=== PATIENT | male | born 1995 ===

== ENCOUNTER 2017-06-22 16:48 | Emergency (ER) | payer OTHER ==
[~2017-06-22] VITALS: Ht 170.2 cm; Wt 73.4 kg
[2017-06-22 16:51] VITALS: TEMP 36.6; Ht 170.2 cm; Wt 73.4 kg
[2017-06-22 17:56] LABS: BASO % 0.4 %; BASO ABS # 0.03 K/uL (0-0.2); EOS % 3.3 %; EOS ABS # 0.25 K/uL (0-0.5); HEMATOCRIT 49.7 % (42-52); HEMOGLOBIN 17.5 g/dL (14.0-18.0); IG# 0.02 K/uL (0.00-0.02); LYMPH % 30.3 %; LYMPH ABS # 2.26 K/uL (1.2-3.4); MEAN CORPUSCULAR HEMOGLOBIN 32.1 pg (25-34); MEAN CORPUSCULAR HGB CONC 35.2 g/dl (32-36); MEAN PLATELET VOLUME 10.3 fL (7.4-10.4); MONO % 9.1 %; MONO ABS # 0.68 K/uL (0.11-0.59); NEUT % 56.6 %; NEUT ABS # 4.23 K/uL (1.4-6.5); PLATELET COUNT 178 K/uL (130-400); RED CELL DISTRIBUTION WIDTH CV 12.8 % (11.5-14.5); RED CELL DISTRIBUTION WIDTH SD 42.4 fL (36.4-46.3); WHITE BLOOD COUNT 7.47 K/uL (4.8-10.8)
[2017-06-22 18:15] LABS: ALBUMIN 3.9 gm/dl (3.4-5.0); ALT/SGPT 38 U/L (12-78); AST/SGOT 30 U/L (15-37); BLOOD UREA NITROGEN 18 mg/dl (7-18); CALCIUM 8.7 mg/dl (8.5-10.1); CARBON DIOXIDE 29 mmol/L (21-32); CREATININE 1.15 mg/dl (0.60-1.40); GLUCOSE 80 mg/dl (70-99); POTASSIUM 4.6 mmol/L (3.5-5.1); SODIUM 138 mmol/L (136-145)
[2017-06-22 18:24] LABS: ALKALINE PHOSPHATASE 79 U/L (45-117); TOTAL PROTEIN 7.7 gm/dl (6.4-8.2)
--- NOTE | 2017-06-22 19:01 | EMERGENCY ROOM VISIT NOTE ---
History Report prepared by [facility]: Pippa Wisdom Under the Supervision of: Dr. Charmaine Liang D.O. First contact with patient: 17:18 Chief Complaint: MENTAL HEALTH EVALUATION Stated Complaint: MENTAL HEALTH EVAL History of Present Illness The patient is a 21 year old male who presents to the Emergency Room for a mental health evaluation. The patient was brought in by the [place] Police. The patient reports he talked to a counselor at [facility] [employer] through student affairs today. He states "I think my tone was off". He reports his counselor called the police to take him to the ED because she was "concerned" for him. The patient states he willingly came to the ED with police. The patient states he has told his counselor at [facility] about his thoughts of wanting to hurt himself. He notes intermittent thoughts of wanting to hurt himself. He reports these thoughts have become more frequent. He denies any suicidal attempts. He also notes "mood swings" of anger and sadness. The patient reports he has more recently had racing thoughts, been unable to slow his mind down, and difficulty falling asleep at night. The patient reports feeling anxious about a lot of things. He notes having surgery on left ankle a year ago. He reports he still has a lot of pain in his ankle. The patient was on oxycodone and Percocet after his surgery. He denies any more recent use of pain medication. The patient states his thoughts of wanting to hurt himself initially started after he had to be sedentary from his surgery a year ago. 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 Pt denies headache, change in vision, fevers, chest pain, shortness of breath, nausea, vomiting, diarrhea, pain with urination , and melena. Source of History: patient Position: other (generalized) Quality: other (mental health evaluation) Modifying Factors (Relieving): other (none) Associated Symptoms: No fevers, No headache, No chest pain, No SOB, No nausea, No vomiting, No urinary symptoms Review of Systems See HPI for pertinent positives & negatives. A total of 10 systems reviewed and were otherwise negative. Past Medical & Surgical Medical Problems: (1) left ankle surgery Family History Patient reports no known family medical history. Social History Smoking Status: Current Every Day Smoker Marital Status: single Housing Status: lives with roommate Occupation Status: [employer] student Current/Historical Medications No Active Prescriptions or Reported Meds Allergies Coded Allergies: No Known Allergies (Unverified , 12/13/15) Physical Exam Vital Signs Date Time Temp Pulse Resp B/P (MAP) Pulse Ox O2 Delivery O2 Flow Rate FiO2 06/22/17 19:15 64 16 122/69 98 06/22/17 16:51 36.6 78 16 130/76 98 Room Air Physical Exam GENERAL: alert, well appearing, well nourished, no distress, non-toxic EYE EXAM: normal conjunctiva, PERRL and EOM's grossly intact OROPHARYNX: no exudate, no erythema, lips, buccal mucosa, and tongue normal and mucous membranes are moist NECK: supple, no nuchal rigidity, no adenopathy, non-tender LUNGS: Clear to auscultation. Normal chest wall mechanics HEART: no murmurs, S1 normal and S2 normal ABDOMEN: abdomen soft, non-tender, normo-active bowel sounds, no masses, no rebound or guarding. BACK: Back is symmetrical on inspection and there is no deformity, no midline tenderness, no CVA tenderness. SKIN: no rashes and no bruising UPPER EXTREMITIES: upper extremities are grossly normal. LOWER EXTREMITIES: No pitting edema. NEURO EXAM: Normal sensorium, cranial nerves II-XII grossly intact, normal speech, no gross weakness of arms, no gross weakness of legs. PSYCH: anxiety, insomnia, SI Medical Decision & Procedures Laboratory Results 06/22/17 17:42 Red Blood Count 5.46, Mean Corpuscular Volume 91.0, Mean Corpuscular Hemoglobin 32.1, Mean Corpuscular Hemoglobin Concent 35.2, Mean Platelet Volume 10.3, Neutrophils (%) (Auto) 56.6, Lymphocytes (%) (Auto) 30.3, Monocytes (%) (Auto) 9.1, Eosinophils (%) (Auto) 3.3, Basophils (%) (Auto) 0.4, Neutrophils # (Auto) 4.23, Lymphocytes # (Auto) 2.26, Monocytes # (Auto) 0.68, Eosinophils # (Auto) 0.25, Basophils # (Auto) 0.03 06/22/17 17:42 Test 4/10/18 17:42 06/22/17 18:20 White Blood Count 7.47 K/uL (4.8-10.8) Red Blood Count 5.46 M/uL (4.7-6.1) Hemoglobin 17.5 g/dL (14.0-18.0) Hematocrit 49.7 % (42-52) Mean Corpuscular Volume 91.0 fL (80-100) Mean Corpuscular Hemoglobin 32.1 pg (25-34) Mean Corpuscular Hemoglobin Concent 35.2 g/dl (32-36) Platelet Count 178 K/uL (130-400) Mean Platelet Volume 10.3 fL (7.4-10.4) Neutrophils (%) (Auto) 56.6 % Lymphocytes (%) (Auto) 30.3 % Monocytes (%) (Auto) 9.1 % Eosinophils (%) (Auto) 3.3 % Basophils (%) (Auto) 0.4 % Neutrophils # (Auto) 4.23 K/uL (1.4-6.5) Lymphocytes # (Auto) 2.26 K/uL (1.2-3.4) Monocytes # (Auto) 0.68 K/uL (0.11-0.59) Eosinophils # (Auto) 0.25 K/uL (0-0.5) Basophils # (Auto) 0.03 K/uL (0-0.2) RDW Standard Deviation 42.4 fL (36.4-46.3) RDW Coefficient of Variation 12.8 % (11.5-14.5) Immature Granulocyte % (Auto) 0.3 % Immature Granulocyte # (Auto) 0.02 K/uL (0.00-0.02) Anion Gap 2.0 mmol/L (3-11) Est Creatinine Clear Calc Drug Dose 94.2 ml/min Estimated GFR () 104.1 Estimated GFR (Non- 89.8 BUN/Creatinine Ratio 15.3 (10-20) Calcium Level 8.7 mg/dl (8.5-10.1) Total Bilirubin 0.3 mg/dl (0.2-1) Direct Bilirubin < 0.1 mg/dl (0-0.2) Aspartate Amino Transf (AST/SGOT) 30 U/L (15-37) Alanine Aminotransferase (ALT/SGPT) 38 U/L (12-78) Alkaline Phosphatase 79 U/L (45-117) Total Protein 7.7 gm/dl (6.4-8.2) Albumin 3.9 gm/dl (3.4-5.0) Thyroid Stimulating Hormone (TSH) 1.780 uIu/ml (0.300-4.500) Ethyl Alcohol mg/dL < 3.0 mg/dl (0-3) Urine Color YELLOW Urine Appearance CLEAR (CLEAR) Urine pH 5.0 (4.5-7.5) Urine Specific [place] 1.020 (1.000-1.030) Urine Protein NEG (NEG) Urine Glucose (UA) NEG (NEG) Urine Ketones NEG (NEG) Urine Occult Blood TRACE (NEG) Urine Nitrite NEG (NEG) Urine Bilirubin NEG (NEG) Urine Urobilinogen NEG (NEG) Urine Leukocyte Esterase NEG (NEG) Urine WBC (Auto) 0 /hpf (0-5) Urine RBC (Auto) 0-4 /hpf (0-4) Urine Hyaline Casts (Auto) 0 /lpf (0-5) Urine Epithelial Cells (Auto) 0-5 /lpf (0-5) Urine Bacteria (Auto) NEG (NEG) Urine Opiates Screen NEG (NEG) Urine Methadone, Qualitative NEG (NEG) Urine Barbiturates NEG (NEG) Urine Phencyclidine (PCP) Level NEG (NEG) Ur Amphetamine/Methamphetamine NEG (NEG) MDMA (Ecstasy) Screen NEG (NEG) Urine Benzodiazepines Screen NEG (NEG) Urine Cocaine Confirmation 1180 NG/ML (UJUTZC=590) Urine Cocaine Metabolite POS (NEG) Urine Marijuana (THC) POS (NEG) Urine Marijuana (THC Carboxy Acid) 71 NG/ML (CUTOFF=5) Laboratory results per my review. ED Course 1726: The patient was evaluated in room A5. A complete history and physical exam was performed. 1850: Patient seen and evaluated by psychiatric case resolution specialist. Does not feel the patient is an imminent danger to himself or others. No 302 petition although brought by police. Patient, cooperative here. Patient already with an established counselor through [employer] [facility]. Patient denies current SI. No prior history of attempts. The patient has an appointment with his counselor tomorrow morning. 1908: Upon reevaluation, the patient is feeling better. I discussed the findings and the treatment plan with the patient. He verbalizes agreement and understanding. He was discharged home. Medical Decision Differential diagnosis: Etiologies such as mood disorder, infection, hypoglycemia, electrolyte abnormalities, cardiac sources, intracerebral event, toxicologic, neurologic, as well as others were entertained. Medication Reconcilliation Current Medication List: was personally reviewed by me Blood Pressure Screening Patient's blood pressure: Elevated blood pressure Blood pressure disposition: Elevated BP felt to be situational Impression Primary Impression: Anxiety Additional Impression: Sleep difficulties Scribe Attestation The scribe's documentation has been prepared under my direction and personally reviewed by me in its entirety. I confirm that the note above accurately reflects all work, treatment, procedures, and medical decision making performed by me. Departure Information Dispostion Home / Self-Care Prescriptions No Active Prescriptions or Reported Meds Referrals No Doctor, Assigned (PCP) Forms HOME CARE DOCUMENTATION FORM, IMPORTANT VISIT INFORMATION Patient Instructions Anxiety Disorder, Insomnia, My [facility] Additional Instructions Please keep your appointment tomorrow with your counselor. You may return to the ER at any time with any new or concerning symptoms. Please try to establish a regular pattern for sleep. Please avoid any electronic devices or television an hour before bedtime. Please consider starting [id number] sleep aid such as melatonin or valerian root. Please take these according to the bottle instructions. Please make sure you are staying well-hydrated and getting regular exercise. Please avoid alcohol as this can contribute to difficulty sleeping also. Problem Qualifiers
[2017-06-22 19:15] VITALS: BP 122/69; PULSE 64; O2SAT 98
== END 2017-06-22 19:15 | disposition home or self-care (01) ==
LOC: C.EDB 16:49 → C.EDA 19:15
DX: F41.9 Anxiety disorder, unspecified (principal); G47.9 Sleep disorder, unspecified; F17.200 Nicotine dependence, unspecified, uncomplicated